=== PATIENT | male | born 1955 | race Caucasian/White ===

== ENCOUNTER 2021-03-21 08:14 | Emergency (ER) | payer BC ==
[2021-03-21 08:27] VITALS: BP 142/99; PULSE 75; TEMP 97.6; BMI 31.1
[2021-03-21] MEDS ORDERED: ASPIRIN 81 MG CHEWABLE TABLETS PO ONE (08:39)
[2021-03-21] MEDS ORDERED: ASPIRIN 81 MG CHEWABLE TABLETS ONE (09:13)
[2021-03-21 09:47] LABS: ACTIVATED PTT 27.3 SECONDS (25.2-36.5)
[2021-03-21 09:50] LABS: ALBUMIN 4.3 g/dl (3.4-5.0); BILIRUBIN,TOTAL 1.1 mg/dl (0.2-1); CALCIUM 9.3 mg/dl (8.5-10); CREATININE 1.1 mg/dl (0.55-1.3); MAGNESIUM 2.1 mg/dL (1.8-2.4); TOT PROT 7.2 g/dl (6.4-8.2)
[2021-03-21 09:52] LABS: INR 1.16 (0.82-1.09); PROTHROMBIN TIME (PATIENT) 12.9 SEC (10.2-13.0)
[2021-03-21 09:53] LABS: BASO % 0.3 % (0-2.0); HEMATOCRIT 50.7 % (35.4-49); HEMOGLOBIN 16.8 GM/dL (11.7-16.9); LYMPH % 31.5 % (8-40); MCH 29.8 pg (25.7-33.7); MCHC 33.2 g/dl (32.0-35.9); MEAN CELL VOLUME 89.8 fl (80-96); MEAN PLT VOLUME 9.2 fl (7.5-11.1); MONO % 11.8 % (3.8-10.2); NEUT % 55.4 % (42.8-82.8); PLATELET COUNT 149 10^3/uL (134-434); RBC 5.64 M/mm3 (4.00-5.60); WHITE BLOOD COUNT 4.7 K/mm3 (4.0-10.0)
== END 2021-03-21 10:24 | disposition home or self-care (01) ==
LOC: FER 08:14
DX: R07.9 Chest pain, unspecified (principal); S40.022A Contusion of left upper arm, initial encounter; X50.0XXA Overexertion from strenuous movement or load, initial encounter
CPT/HCPCS: 36415; 71046-TC-FY; 73030-TC-LT-FY; 80053; 82550; 82553; 83735; 84484; 85025; 85610; 85730; 93005; 99285-25

== ENCOUNTER 2021-05-29 08:40 | Day surgery (SDC) | payer BC ==
[2021-05-24 18:20] VITALS: BMI 32.3
[2021-05-29] MEDS ORDERED: BUPIVACAINE HCL/EPINEPHRINE/PF 30 ML VIAL IJ ONE (08:57)
[2021-05-29] MEDS ORDERED: ROPIVACAINE HCL/PF 100 MG/20 ML VIAL ONE (10:50)
[2021-05-29] MEDS ORDERED: MIDAZOLAM HCL 2 MG/2 ML SINGLE DOSE VIAL ONE (10:50)
[2021-05-29] MEDS ORDERED: EPINEPHrine 1:1,000 1,000 MCG/ML ML ONE (11:39)
[2021-05-29] MEDS ORDERED: PROPOFOL 20 ML ONE (11:41)
[2021-05-29] MEDS ORDERED: ceFAZolin SODIUM 1 GM VIAL ONE (11:50)
[2021-05-29] MEDS ORDERED: ONDANSETRON 4 MG/2 ML VIAL ONE (11:50)
[2021-05-29] MEDS ORDERED: KETOROLAC TROMETHAMINE 30 MG/1 ML VIAL ONE (11:50)
[2021-05-29] MEDS ORDERED: DEXAMETHASONE SOD PHOSPHATE 4 MG/1 ML VIAL ONE (11:50)
[2021-05-29] MEDS ORDERED: oxyCODONE HCL 5 MG TABLET PO PRN (13:31)
[2021-05-29] MEDS ORDERED: ONDANSETRON 4 MG/2 ML VIAL IVPUSH PRN (13:31)
[2021-05-29] MEDS ORDERED: PROMETHAZINE HCL 25 MG/1 ML VIAL IVPUSH PRN (13:31)
[2021-05-29] MEDS ORDERED: ACETAMINOPHEN 1000 MG/100 ML BAG IVPB ONE (13:31)
[2021-05-29] MEDS ORDERED: LACTATED RINGERS SOLUTION 1,000 ML IV SCH (13:45)
[2021-05-29] MEDS ORDERED: ACETAMINOPHEN INJECTION 100 ML IVPB ONE (13:58)
[2021-05-29] MEDS ORDERED: KETOROLAC TROMETHAMINE 30 MG/1 ML VIAL IVPUSH SCH (14:00)
[2021-05-29 14:41] VITALS: TEMP 97.6
[2021-05-29 15:12] VITALS: BP 133/77; PULSE 85
== END 2021-05-29 15:10 | disposition home or self-care (01) ==
LOC: FASU 08:40
PROVIDERS: ATTEND Orthopaedic Surgery
PROC: 0LQ24ZZ Repair Left Shoulder Tendon, Percutaneous Endoscopic Approach (ICD-10-PCS; principal; 2021-05-29 12:13)
PROC: 0RNK4ZZ Release Left Shoulder Joint, Percutaneous Endoscopic Approach (ICD-10-PCS; 2021-05-29 12:13)
DX: M75.122 Complete rotator cuff tear or rupture of left shoulder, not specified as traumatic (principal)
CPT/HCPCS: 94760